=== PATIENT | female | born 1960 | race African-American/Black ===

== ENCOUNTER 2017-07-08 10:02 | Emergency (ER) | payer OTHER ==
[2017-07-08 10:21] VITALS: TEMP 98.2; BMI 39.6
[2017-07-08] MEDS ORDERED: KETOROLAC TROMETHAMINE 30 MG/1 ML VIAL IVPUSH ONE (10:55)
--- NOTE | 2017-07-08 11:08 | PDOC ---
History of Present Illness <Kristina Cao - Last Filed: 07/08/17 11:09> <Jude Schulte - Last Filed: 07/11/17 17:53> - General Chief Complaint: Shortness of Breath Stated Complaint: SOB Time Seen by Provider: 07/08/17 10:31 - History of Present Illness Initial Comments: 07/08/17 11:06 "The patient is a 56 year old female with history of hypertension and hyperlipidemia who presents to the ED complaining of chest pain and shortness of breath that woke her from sleep this morning. Her chest pain is left sided, sharp, stabbing, worse with inspiration and positional changes. No nausea, vomiting, or diaphoresis. No peripheral edema. No recent travel, long periods of immobilization, or exogenous hormones. No fever or chills. Sister had MS in her 30s/40s. Denies abdominal pain/N/V. (Jude Schulte) Past History <Kristina Cao - Last Filed: 07/08/17 11:09> - Past Medical History COPD: No GI Disorders: Yes (ACID REFLUX) HTN: Yes Thyroid Disease: Yes (Hyper) - Surgical History Abdominal Surgery: Yes (EXP LAP) Cholecystectomy: Yes Neurologic Surgery: Yes (back) - Immunization History Immunization Up to Date: Yes - Suicide/Smoking/Psychosocial Hx Smoking History: Unknown if ever smoked Have you smoked in the past 12 months: Yes Number of Cigarettes Smoked Daily: 10 'Breaking Loose' booklet given: 06/18/14 Hx Alcohol Use: No Drug/Substance Use Hx: No Substance Use Type: None <Jude Schulte - Last Filed: 07/11/17 17:53> - Past Medical History Allergies/Adverse Reactions: Allergies Allergy/AdvReac Type Severity Reaction Status Date / Time No Known Allergies Allergy Verified 07/08/17 10:18 Home Medications: Ambulatory Orders Amlodipine Besylate [Norvasc -] 5 mg PO DAILY 12/03/15 Hydrochlorothiazide [Hctz -] 25 mg PO DAILY 12/03/15 Polyethylene Glycol 3350 [Gavilax] 17 gm PO DAILY 12/03/15 Fentanyl 1 each TD ASDIR 07/08/17 Hydrocodone/Acetaminophen [Hydrocodon-Acetaminophn 10-325] 1 each PO QID Omeprazole 40 mg PO ASDIR 07/08/17 Sucralfate [Carafate -] 1 gm PO ASDIR 07/08/17 Travoprost [Travatan Z] 0 ml OP HS 07/08/17 Cardiac Specific PMH - Complaint Specific PMHX GERD: No <Jude Schulte - Last Filed: 07/11/17 17:53> Review of Systems <Kristina Cao - Last Filed: 07/08/17 11:09> <Jude Schulte - Last Filed: 07/11/17 17:53> - Review of Systems Comments:: 07/08/17 11:06 "GENERAL/CONSTITUTIONAL: No fever or chills. No weakness. HEAD, EYES, EARS, NOSE AND THROAT: No change in vision. No ear pain or discharge. No sore throat. CARDIOVASCULAR: +L chest pain. +SOB. No peripheral edema. RESPIRATORY: No cough or hemoptysis. GASTROINTESTINAL: No nausea, vomiting, diarrhea or constipation. GENITOURINARY: No dysuria, frequency, or change in urination. MUSCULOSKELETAL: No joint or muscle swelling or pain. No neck or back pain. SKIN: No rash NEUROLOGIC: No headache, vertigo, loss of consciousness, or change in strength/ sensation. ENDOCRINE: No increased thirst. No abnormal weight change. HEMATOLOGIC/LYMPHATIC: No anemia, easy bleeding, or history of blood clots. ALLERGIC/IMMUNOLOGIC: No hives or skin allergy. " (Jude Schulte) *Physical Exam <Kristina Cao - Last Filed: 07/08/17 11:09> <Jude Schulte - Last Filed: 07/11/17 17:53> - Vital Signs Last Vital Signs Temp Pulse Resp BP Pulse Ox 98.2 F 76 18 127/80 100 07/08/17 10:15 07/08/17 17:35 07/08/17 10:15 07/08/17 17:35 07/08/17 17:35 - Physical Exam Comments: 07/08/17 11:07 "GENERAL: Awake, alert, and fully oriented, in no acute distress HEAD: No signs of trauma EYES: PERRLA, EOMI, sclera anicteric, conjunctiva clear ENT: Auricles normal inspection, hearing grossly normal, nares patent, oropharynx clear without exudates. Moist mucosa NECK: Nontender, no stepoffs, Normal ROM, supple, no lymphadenopathy, JVD, or masses LUNGS: Breath sounds equal, clear to auscultation bilaterally. No wheezes, and no crackles HEART: Regular rate and rhythm, normal S1 and S2, no murmurs, rubs or gallops ABDOMEN: Soft, nontender, normoactive bowel sounds. No guarding, no rebound. No masses EXTREMITIES: Normal range of motion, no edema. No clubbing or cyanosis. No cords, erythema, or tenderness NEUROLOGICAL: Cranial nerves II through XII intact. 5/5 strength and sensation in all extremities, Normal speech, normal gait SKIN: Warm, Dry, normal turgor, no rashes or lesions noted. " (Jude Schulte) Heart Score/ECG Review <Kristina Cao - Last Filed: 07/08/17 11:09> - History History: Slightly suspicious - Electrocardiogram EKG: Normal - Age Age: 45-65 - Risk Factors Risk Factors Heart Score: Yes Hx Hypercholesterolemia, Yes Hx Hypertension, Yes Positive family hx of cardiac disease Based on the list above the patient has:: >/=3 risk factors or Hx atherosclerotic disease - Troponin Troponin: </= normal limit - Score Heart Score - Total: 3 <Jude Schulte - Last Filed: 07/11/17 17:53> - ECG Impressions Comment:: 07/08/17 15:51 NSR, no MARY/STDs, no TWIs, axis wnl, intervals wnl (Jude Schulte) ED Treatment Course - LABORATORY CBC & Chemistry Diagram: 07/08/17 11:25 07/08/17 11:25 <Jude Schulte - Last Filed: 07/11/17 17:53> - ADDITIONAL ORDERS Additional order review: 07/08/17 11:25 RBC 4.56 MCV 91.1 MCHC 32.7 RDW 14.0 MPV 7.4 L Neutrophils % 66.2 Lymphocytes % 24.8 Monocytes % 6.7 Eosinophils % 1.5 D Basophils % 0.8 - RADIOLOGY Radiology Studies Ordered: Category Date Time Status CHEST CT WITH CONTRAST [CT] Stat CT Scan 07/08/17 12:48 Completed CHEST X-RAY PORTABLE* [RAD] Stat Radiology 07/08/17 10:52 Completed - Medications Given in the ED: ED Medications Discontinued Medications Generic Name Dose Route Start Last Admin Trade Name Freq PRN Reason Stop Dose Admin Ketorolac Tromethamine 15 mg 07/08/17 10:55 07/08/17 11:40 Toradol Injection - IVPUSH 07/08/17 10:56 15 mg ONCE ONE Administration Medical Decision Making - Critical Care Time Total Critical Care Time (minutes): 30 Critical Care Statement: The care of this patient involved high complexity decision making to prevent further life threatening deterioration of the patient 's condition and/or to evaluate & treat vital organ system(s) failure or risk of failure. <Kristina Cao - Last Filed: 07/08/17 11:09> <Jude Schulte - Last Filed: 07/11/17 17:53> - Medical Decision Making 07/08/17 11:07 56 F with HTN, HLD presenting with CP+SOB since 3am today. Will r/o ACS given pt 's cardiac risk factors. Also consider PE as pt reports pleuritic chest pain and SOB. - Labs, trop, Ddimer - CXR 07/08/17 12:53 Trop negative. Ddimer elevated >300. Will obtain CT chest to r/o PE. 07/08/17 16:29 CTPE negative. Pt reassessed - now reports resolution of pain s/p toradol. Pt well appearing, no complaints at this time. Vitals stable. Clinically stable for DC. I discussed the physical exam findings, ancillary test results and final diagnoses with the patient. I answered all of the patient's questions. The patient was satisfied with the care received and felt comfortable with the discharge plan and treatment plan. The patient agrees to follow up with the primary care physician within 24-72 hours. 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 Even though your tests were normal today, your pain may still be related to your heart. You can call the number provided to make an appointment with our cardiology clinic if you prefer. If you experience worsening chest pain, shortness of breath, or any other concerning symptoms, return to the ER immediately. Otherwise, follow up with your primary doctor within 48 hours. - Post Discharge Activity - Attestations Physician Attestion: 07/08/17 16:33 I, Dr. Jude Schulte MD, attest that this document has been prepared under my direction and personally reviewed by me in its entirety. I further attest, that it accurately reflects all work, treatment, procedures and medical decision -making performed by me. (Jude Schulte)
[2017-07-08] MEDS ORDERED: KETOROLAC TROMETHAMINE 15 MG/ML VIAL ONE (11:36)
[2017-07-08 11:45] LABS: BASO % 0.8 % (0-2.0); EOS % 1.5 % (0-4.5); HEMATOCRIT 41.6 % (32.4-45.2); HEMOGLOBIN 13.6 GM/dL (10.7-15.3); LYMPH % 24.8 % (8-40); MCH 29.8 pg (25.7-33.7); MCHC 32.7 g/dl (32.0-36.0); MEAN CELL VOLUME 91.1 fl (80-96); MEAN PLT VOLUME 7.4 fl (7.5-11.1); MONO % 6.7 % (3.8-10.2); NEUT % 66.2 % (42.8-82.8); PLATELET COUNT 251 K/MM3 (134-434); RBC 4.56 M/mm3 (3.60-5.2); WHITE BLOOD COUNT 6.7 K/mm3 (4.0-10.0)
[2017-07-08 11:57] LABS: INR 1.12 (0.82-1.09); PROTHROMBIN TIME (PATIENT) 12.7 SEC (9.98-11.88)
[2017-07-08 12:00] LABS: ACTIVATED PTT 31.1 SECONDS (26.9-34.4)
[2017-07-08 12:06] LABS: ALBUMIN 3.6 g/dl (3.4-5.0); ANION GAP 8 (8-16); BILIRUBIN,TOTAL 0.5 mg/dL (0.2-1.0); BLOOD UREA NITROGEN 10 mg/dL (7-18); CHLORIDE 99 mmol/L (98-107); CO2 33 mmol/L (21-32); GLUCOSE,RANDOM 100 mg/dL (74-106); LIPASE 151 U/L (73-393); POTASSIUM 3.5 mmol/L (3.5-5.1); SGOT/AST 17 U/L (15-37); SGPT/ALT 22 U/L (12-78); SODIUM 140 mmol/L (136-145); TOT PROT 7.2 g/dl (6.4-8.2)
[2017-07-08 12:09] LABS: ALK PHOS 100 U/L (45-117); N-TERMINAL BNP 54.12 pg/ml (5-125)
[2017-07-08 17:36] VITALS: BP 127/80; PULSE 76
--- NOTE | 2017-07-10 22:04 | EKG ---
Test Reason : Blood Pressure : / mmHG Vent. Rate : 061 BPM Atrial Rate : 061 BPM P-R Int : 146 ms QRS Dur : 070 ms QT Int : 412 ms P-R-T Axes : 074 003 005 degrees QTc Int : 414 ms NORMAL SINUS RHYTHM LOW VOLTAGE QRS BORDERLINE ECG WHEN COMPARED WITH ECG OF 10-OCT-2007 05:54, NO SIGNIFICANT CHANGE WAS FOUND Confirmed by FARRAH WATERS MD ([id number]) on 07/10/2017 10:04:24 PM Referred By: Confirmed By:FARRAH WATERS MD
== END 2017-07-08 17:36 | disposition home or self-care (01) ==
LOC: JER 10:02
PROC: 3E0333Z Introduction of Anti-inflammatory into Peripheral Vein, Percutaneous Approach (ICD-10-PCS; principal; 2017-07-08)
DX: R07.89 Other chest pain (principal); I10 Essential (primary) hypertension; E78.00 Pure hypercholesterolemia, unspecified; Z82.49 Family history of ischemic heart disease and other diseases of the circulatory system
CPT/HCPCS: 36415; 71045-TC; 71260-TC; 80053; 82550; 83690; 83880; 84484; 85025; 85379; 85610; 85730; 93005; 93010; 96374; 99282-25

== ENCOUNTER 2022-07-02 12:40 | Emergency (ER) | payer OTHER ==
[2022-07-02 12:45] VITALS: BP 133/79; PULSE 101; RESP 18; TEMP 98.3; BMI 45.1
== END 2022-07-02 15:54 | disposition home or self-care (01) ==
LOC: JERFT 12:40
DX: M54.50 Low back pain, unspecified (principal)
CPT/HCPCS: 72100-TC-FY; 99283-25

== ENCOUNTER 2023-03-17 03:35 | Emergency (ER) | payer BC, OTHER ==
[2023-03-17 03:59] VITALS: TEMP 98.4; BMI 41.9
[2023-03-17] MEDS ORDERED: morphine CARPU-JECT 4 MG/1 ML DISP.SYRIN IVPUSH ONE (04:36)
[2023-03-17] MEDS ORDERED: morphine SULFATE 4 MG/ML VIAL ONE (04:42)
[2023-03-17 04:53] LABS: BASO % 0.8 % (0-2.0); EOS % 1.7 % (0-4.5); HEMATOCRIT 32.1 % (32.4-45.2); HEMOGLOBIN 10.4 GM/dL (10.7-15.3); LYMPH % 21.2 % (8-40); MCH 25.3 pg (25.7-33.7); MCHC 32.4 g/dl (32.0-36.0); MEAN CELL VOLUME 78.1 fl (80-96); MEAN PLT VOLUME 7.5 fl (7.5-11.1); MONO % 7.4 % (3.8-10.2); NEUT % 68.9 % (42.8-82.8); PLATELET COUNT 340 10^3/uL (134-434); RBC 4.12 M/mm3 (3.60-5.2); RDW 17.3 % (11.6-15.6); WHITE BLOOD COUNT 9.3 K/mm3 (4.0-10.0)
[2023-03-17 04:57] LABS: INR 1.27 (0.83-1.09); PROTHROMBIN TIME (PATIENT) 14.7 SEC (9.7-13.0)
[2023-03-17 05:14] LABS: POTASSIUM 3.8 mmol/L (3.5-5.1)
[2023-03-17 05:16] LABS: ALBUMIN 3.5 g/dl (3.4-5.0); BLOOD UREA NITROGEN 7.3 mg/dL (7-18); CALCIUM 8.8 mg/dL (8.5-10.1)
[2023-03-17 05:20] LABS: BILIRUBIN,TOTAL 0.4 mg/dL (0.2-1)
[2023-03-17 05:22] LABS: TOT PROT 7.4 g/dl (6.4-8.2)
[2023-03-17] MEDS ORDERED: ACETAMINOPHEN 1000 MG/100 ML BAG IVPB ONE (06:34)
[2023-03-17] MEDS ORDERED: ACETAMINOPHEN INJECTION 100 ML IVPB ONE (06:34)
[2023-03-17 06:39] VITALS: RESP 16
[2023-03-17] MEDS ORDERED: KETOROLAC TROMETHAMINE 15 MG/ML VIAL IVPUSH ONE (08:20)
[2023-03-17] MEDS ORDERED: KETOROLAC TROMETHAMINE 15 MG/ML VIAL ONE ×2 (08:20→08:25)
[2023-03-17 08:51] LABS: URINE APPEARANCE CLEAR; URINE BILIRUBIN NEGATIVE (NEGATIVE); URINE COLOR YELLOW; URINE GLUCOSE (UA) NEGATIVE (NEGATIVE); URINE KETONE NEGATIVE (NEGATIVE); URINE LEUK ESTERASE NEGATIVE (NEGATIVE); URINE NITRITE NEGATIVE (NEGATIVE); URINE PROTEIN NEGATIVE (NEGATIVE); URINE UROBILINOGEN 0.2 mg/dL (0.2-1.0)
[2023-03-17 09:16] VITALS: BP 140/60; PULSE 80
== END 2023-03-17 09:11 | disposition home or self-care (01) ==
LOC: JER 03:35
PROC: 3E033NZ Introduction of Analgesics, Hypnotics, Sedatives into Peripheral Vein, Percutaneous Approach (ICD-10-PCS; principal; 2023-03-17)
PROC: 3E0333Z Introduction of Anti-inflammatory into Peripheral Vein, Percutaneous Approach (ICD-10-PCS; 2023-03-17)
PROC: 3E033GC Introduction of Other Therapeutic Substance into Peripheral Vein, Percutaneous Approach (ICD-10-PCS; 2023-03-17)
DX: R10.30 Lower abdominal pain, unspecified (principal); R63.0 Anorexia; E66.9 Obesity, unspecified
CPT/HCPCS: 36415; 74177-TC; 80053; 81003; 82272; 83605; 83690; 84484; 85025; 85610; 85730; 86850; 86900; 86901; 87086; 87186; 99285-25; Q9967